=== PATIENT | female | born 1965 | race Caucasian/White ===

== ENCOUNTER 2017-12-22 13:18 | Day surgery (SDC) | payer OTHER ==
[2017-12-22] MEDS ORDERED: FENTAnyl 50 MCG/ML VIAL (18:02)
[2017-12-22] MEDS ORDERED: MIDAZOLAM 1 MG/ML 2 ML INJ ×2 (18:02→18:03)
== END 2017-12-22 18:46 | disposition home or self-care (01) ==
LOC: GIL 13:18
DX: Z12.11 Encounter for screening for malignant neoplasm of colon (principal); K64.8 Other hemorrhoids
CPT/HCPCS: 45378